=== PATIENT | male | born 1975 | race Caucasian/White ===

== ENCOUNTER 2017-11-23 06:12 | Emergency (ER) | payer BC, OTHER ==
[~2017-11-23] VITALS: Ht 175.3 cm; Wt 93.0 kg
[~2017-11-23 06:12] MED LIST: APAP650 PO; CHLORDIAZEPOXID25 M1 PO; CHLORPROMAZINE25 M3 PO; CIPROFLOXACIN500 M1 PO; FLOMAX0.4 MG PO; NEURONTIN 300300 M1 PO; NORCO 5-325 TA1 EACH PO; PERCOCET 5-3251 EACH PO; PRENATAL ONE T1 EACH PO; PROPRANOLOL 8080 MG PO; REVIA 50 MG TAB50 M1 PO; TAMSULOSIN HCL0.4 M1 PO; VITAMIN B-1100 M1 PO; ZOFRAN4 MG PO
[2017-11-23] MEDS ORDERED: NOHOMEMEDICATIONS (06:18)
[2017-11-23 08:21] VITALS: BP 122/94
== END 2017-11-23 08:21 | disposition home or self-care (01) ==
LOC: ER 06:12
DX: S22.32XA Fracture of one rib, left side, initial encounter for closed fracture (principal); F17.210 Nicotine dependence, cigarettes, uncomplicated; Z88.1 Allergy status to other antibiotic agents; X58.XXXA Exposure to other specified factors, initial encounter; Y93.89 Activity, other specified; Y92.89 Other specified places as the place of occurrence of the external cause; Y99.8 Other external cause status